=== PATIENT | female | born 1965 | race Two or more races ===

== ENCOUNTER 2016-02-29 14:58 | Emergency (ER) | payer OTHER ==
[~2016-02-29] VITALS: Ht 152.4 cm; Wt 58.7 kg
[~2016-02-29 14:58] MED LIST: ACET325T16 PO; DULO60CA44 PO; FERROUS GLUCON325 M1 PO; PROM25TA10 PO; RANI150T2 PO; ZOLP10TA4 PO
[2016-02-29 15:02] VITALS: BP 120/75
--- NOTE | 2016-02-29 15:37 | PHYS DOC ---
Past Medical History Past Medical History: GERD, Migraines Past Surgical History: No Surgical History Alcohol Use: None Drug Use: None Adult General Chief Complaint Chief Complaint: LOWER EXT PAIN [facility] HPI Patient is a 51 year old female presents the emergency Department today with complaint of atraumatic bilateral lower extremity pain is been ongoing for "several months". Patient describes pain is somewhat in a stocking-like distribution. She denies anything palliative or provocative about the pain. Patient states that she does not take any medications other than "headache medication" as prescribed by Dr. Wilkinson'shweta come her primary care doctor. She absolutely denies taking any statin agents. She denies any history of neuromuscular disease or previous fractures to either of her lower extremities. She denies any history of bone forming disorders. Patient states that she is primarily been staying in bed secondary to her ongoing headache and bilateral lower extremity pain. Patient states that she did see Dr. Cook about her bilateral lower extremity pain. She was prescribed "some medication" to help the pain but was not able to have it filled due to insurance problems. Review of Systems Review of Systems Constitutional: Denies fever or chills [] Eyes: Denies change in visual acuity, redness, or eye pain [] HENT: Denies nasal congestion or sore throat [] Respiratory: Denies cough or shortness of breath [] Cardiovascular: No additional information not addressed in HPI [] GI: Denies abdominal pain, nausea, vomiting, bloody stools or diarrhea [] : Denies dysuria or hematuria [] Musculoskeletal: Bilateral thigh pain that radiates down to her lower legs. Integument: Denies rash or skin lesions [] Neurologic: Denies headache, focal weakness or sensory changes. Endocrine: Denies polyuria or polydipsia [] Current Medications Current Medications Current Medications Medications (Trade) Dose Ordered Sig/Caroline Start Time Stop Time Status Last Admin Dose Admin Ketorolac Tromethamine (Toradol Im) 60 mg 1X ONCE 02/29/16 15:45 02/29/16 15:46 DC 02/29/16 15:51 60 MG Allergies Allergies Allergies Coded Allergies Type Severity Reaction Last Updated Verified No Known Drug Allergies 03/04/13 No Physical Exam Physical Exam Constitutional: Well developed, well nourished, mild distress, non-toxic appearance. HENT: Normocephalic, atraumatic, bilateral external ears normal, oropharynx moist, no oral exudates, nose normal. [] Eyes: PERRLA, EOMI, conjunctiva normal, no discharge. [] Neck: Normal range of motion, no tenderness, supple, no stridor. [] Cardiovascular:Heart rate regular rhythm, no murmur [] Lungs & Thorax: Bilateral breath sounds clear to auscultation [] Abdomen: Bowel sounds normal, soft, no tenderness, no masses, no pulsatile masses. [] Skin: Warm, dry, no erythema, no rash. [] Back: No tenderness, no CVA tenderness. [] Extremities: Lateral lower extremities are normal in appearance without any discoloration to her skin. There is no evidence of dystrophic changes to her skin. There does not appear to be any muscle atrophy. There is pant tenderness to palpation to bilateral thighs and to some degree into her lower legs. There is no focal area of pain. Patient is able to flex and extend at both knees. Patient does have strong posterior tibialis and dorsalis pedis pulses with warm feeding capillary refill less than 2 seconds in her toes. Neurologic: Alert and oriented X 3, normal motor function, normal sensory function, no focal deficits noted. [] Psychologic: Affect normal, judgement normal, mood normal. [] Current Patient Data Vital Signs Vital Signs Date Time Temp Pulse Resp B/P Pulse Ox O2 Delivery O2 Flow Rate FiO2 02/29/16 15:02 97.6 103 16 97 Room Air 97.6 EKG EKG [] Radiology/Procedures Radiology/Procedures Bilateral femur films were performed with adequate technique. There is no evidence of any bony lesions suggestive of osteoblastic or osteoclastic activity. Course & Med Decision Making Course & Med Decision Making During her stay here in the emergency department, patient also complained about bilateral upper extremity pain at this atraumatic as well. This came after her initial contact and evaluation was performed. Patient essentially complains that all of her extremities hurt. There is no evidence of any type of musculoskeletal or neuromuscular deficit. I will prescribe the patient baclofen to help with her musculoskeletal pain and she will need to follow-up with her primary care doctor. Dragon Disclaimer Dragon Disclaimer This electronic medical record was generated, in whole or in part, using a voice recognition dictation system. Departure Departure Impression: Primary Impression: Musculoskeletal pain Disposition: HOME, SELF-CARE Condition: GOOD Referrals: SUSANNA WILKINSON MD (PCP) Patient Instructions: Musculoskeletal Pain Additional Instructions: 1. The x-rays of both 5 bones here today is normal. 2. Take the medication as prescribed. 3. Review the discharge instructions provided for home care as well as reasons to return the emergency department. 4. Call primary care doctor's office Tuesday to schedule follow-up appointment for reevaluation within 7-10 days. Scripts Baclofen 20 Mg Tablet1 Tab PO TID #30 TAB Ref 0 Prov:DONA DIAZ 02/29/16 DONA DIAZ Feb 29, 2016 15:37
[2016-02-29] MEDS ORDERED: KETOROLAC TROMETHAMINE 60 MG/2 ML SYRINGE. IM ONE (15:45)
[2016-02-29] MEDS ORDERED: BACL20TA PO (16:57)
--- NOTE | 2016-03-01 07:20 | RAD ---
Bilateral femurs, 4 views, 02/29/2016: History: Pain No fracture or destructive bony lesion is seen. The soft tissues are unremarkable. IMPRESSION: No significant abnormality is detected.
== END 2016-02-29 17:05 | disposition home or self-care (01) ==
LOC: ER 14:58
DX: M79.605 Pain in left leg (principal); M79.604 Pain in right leg
CPT/HCPCS: 96372; 99284; J1885

== ENCOUNTER 2017-01-03 02:16 | Emergency (ER) | payer OTHER ==
[~2017-01-03] VITALS: Ht 157.5 cm; Wt 58.5 kg
[~2017-01-03 02:16] MED LIST changes: +BACL20TA PO
[2017-01-03 02:33] VITALS: BP 118/87
[2017-01-03] MEDS ORDERED: KETOROLAC 30 MG/ML INJ. ONE (02:41)
[2017-01-03] MEDS ORDERED: KETOROLAC 60 MG/2 ML INJ. IM ONE ×2 (02:45→03:00)
[2017-01-03] MEDS ORDERED: traMADol 50 MG TABLET PO ONE (02:45)
[2017-01-03] MEDS ORDERED: IBUP-1007 PO (02:53)
[2017-01-03] MEDS ORDERED: TRAM-48 PO (02:53)
--- NOTE | 2017-01-03 02:53 | PHYS DOC ---
Past Medical History Past Medical History: GERD, Migraines Past Surgical History: No Surgical History Alcohol Use: None Drug Use: None Adult General Chief Complaint Chief Complaint: LOWER EXT PAIN HPI HPI Patient is a 51 year old female who presents here today complaining of bilateral lower leg pain times one year. Patient reports that she has not taken any medication for for over a year and has not seen her family doctor for it. Patient denies any trauma. Patient has any lower STEMI edema. Patient denies any fevers shakes chills nausea vomiting diarrhea chest pain shortness of breath cough cold or rhinorrhea. Patient has no known drug allergies. Review of systems: Constitutional: Denies fever or chills Eyes: Denies change in visual acuity, redness, or eye pain HENT: Denies nasal congestion or sore throat Respiratory: Denies cough or shortness of breath All other systems were reviewed and found to be within normal limits, except as documented in this note. Physical exam: Constitutional: Well developed, well nourished, no acute distress, non-toxic appearance. HENT: Normocephalic,bilateral external ears normal, oropharynx moist, no oral exudates, nose normal. Eyes: PERRLA, EOMI, conjunctiva normal, no discharge. Neck: Normal range of motion, no tenderness, supple, no stridor. Cardiovascular:Heart rate regular rhythm, no murmur Lungs & Thorax: Bilateral breath sounds clear to auscultation Abdomen: Bowel sounds normal, soft, no tenderness, no masses, no pulsatile masses. Skin: Warm, dry, no erythema, no rash. Back: No tenderness, no CVA tenderness. Extremities: No tenderness, no cyanosis, no clubbing, ROM intact, no edema. Neurologic: Alert and oriented X 3, normal motor function, normal sensory function, no focal deficits noted. Psychologic: Affect normal, judgement normal, mood normal. Excellent capillary refill. Equal pulses bilaterally. Warm to touch no calf tenderness no Homans sign Assessment and plan: Lower extremity pain chronic in nature no new symptoms. Patient be given a shot Toradol and Ultram here in the ED and will be sent home with a prescription for ibuprofen and Ultram to assist her with her pain. Patient was instructed to follow-up with her PCP for further reevaluation of her pain. This does not appear to be acute issue. Patient's sinus symptoms are not to assist with DVT PE cellulitis. Current Medications Current Medications Current Medications Medications (Trade) Dose Ordered Sig/Caroline Start Time Stop Time Status Last Admin Dose Admin Ketorolac Tromethamine (Toradol Im) 30 mg 1X ONCE 01/03/17 03:00 01/03/17 03:01 UNV Ketorolac Tromethamine (Toradol) 30 mg STK-MED ONCE 01/03/17 02:41 01/03/17 02:42 DC Tramadol HCl (Ultram) 50 mg 1X ONCE 01/03/17 02:45 01/03/17 02:46 UNV 01/03/17 02:45 50 MG Allergies Allergies Allergies Coded Allergies Type Severity Reaction Last Updated Verified No Known Drug Allergies 03/04/13 No Current Patient Data Vital Signs Vital Signs Date Time Temp Pulse Resp B/P (MAP) Pulse Ox O2 Delivery O2 Flow Rate FiO2 01/03/17 02:45 22 100 Room Air 01/03/17 02:23 97.8 100 97.8 EKG EKG [] Radiology/Procedures Radiology/Procedures [] Course & Med Decision Making Course & Med Decision Making Pertinent Labs and Imaging studies reviewed. (See chart for details) [] Dragon Disclaimer Dragon Disclaimer This electronic medical record was generated, in whole or in part, using a voice recognition dictation system. Departure Departure Impression: Primary Impression: Musculoskeletal pain Disposition: 01 HOME, SELF-CARE Condition: IMPROVED Referrals: SUSANNA WILKINSON MD (PCP) Patient Instructions: Musculoskeletal Pain Scripts Tramadol Hcl (ULTRAM) 50 Mg Tablet 1 TAB PO Q6HRS, #14 TAB Prov: REY STARKS MD 01/03/17 Ibuprofen (IBUPROFEN) 600 Mg Tablet 600 MG PO PRN Q6HRS Y for PAIN, #20 TAB Prov: REY STARKS MD 01/03/17 REY STARKS MD Jan 03, 2017 02:53
== END 2017-01-03 03:06 | disposition home or self-care (01) ==
LOC: ER 02:16
DX: M79.662 Pain in left lower leg (principal); M79.661 Pain in right lower leg; K21.9 Gastro-esophageal reflux disease without esophagitis; G43.909 Migraine, unspecified, not intractable, without status migrainosus
CPT/HCPCS: 96372; 99283; J1885

== ENCOUNTER 2017-02-24 20:44 | Emergency (ER) | payer OTHER ==
[2017-02-24 21:09] LABS: URINE HCG POC HCG NEGATIVE (Negative)
[2017-02-24] MEDS: IV NORMAL SALINE 1000ML BAG 1,000 ML IV (21:30)
[2017-02-24 21:32] LABS: ADD MAN DIFF? NO
[2017-02-24 21:34] LABS: BASO % 1 % (0-3); EOS # 0.1 x10^3/uL (0.0-0.7); EOS % 1 % (0-3); HEMATOCRIT 42.3 % (36.0-47.0); HEMOGLOBIN 13.8 g/dL (12.0-15.5); LYMPH # 2.6 x10^3/uL (1.0-4.8); LYMPH % 33 % (24-48); MEAN CORPUSCULAR HEMOGLOBIN 27 pg (25-35); MEAN CORPUSCULAR HGB CONC 33 g/dL (31-37); MEAN CORPUSCULAR VOLUME 82 fL (79-100); MONO # 0.7 x10^3/uL (0.0-1.1); MONO % 9 % (0-9); NEUT # 4.5 x10^3uL (1.8-7.7); NEUT % 57 % (31-73); PLATELET COUNT 300 x10^3/uL (140-400); RED BLOOD COUNT 5.16 x10^6/uL (3.50-5.40); RED CELL DISTRIBUTION WIDTH 14.7 % (11.5-14.5)
[2017-02-24 21:46] LABS: ANION GAP 13 (6-14); BLOOD UREA NITROGEN 16 mg/dL (7-20); BUN/CREATININE RATIO 15 (6-20); CALCIUM 9.2 mg/dL (8.5-10.1); CARBON DIOXIDE 21 mmol/L (21-32); CHLORIDE 106 mmol/L (98-107); CREATININE 1.1 mg/dL (0.6-1.0); GFR 52.6; GLUCOSE 96 mg/dL (70-99); POTASSIUM 3.6 mmol/L (3.5-5.1); SODIUM 140 mmol/L (136-145)
[2017-02-24 21:47] LABS: BILIRUBIN,URINE NEGATIVE (NEG); CLARITY,URINE CLEAR; COLOR,URINE YELLOW; GLUCOSE,URINE NEGATIVE (NEG); NITRITE,URINE NEGATIVE (NEG); PROTEIN,URINE NEGATIVE (NEG-TRACE); UROBILINOGEN,URINE 0.2 mg/dL (0.2 mg/dL)
[2017-02-24 21:53] LABS: ALBUMIN 3.7 g/dL (3.4-5.0); ALBUMIN/GLOBULIN RATIO 0.9 (1.0-1.7); ALK PHOS 91 U/L (46-116); ALT (SGPT) 35 U/L (14-59); AST (SGOT) 14 U/L (15-37); CREATINE KINASE 77 U/L (26-192); LIPASE 223 U/L (73-393); MAGNESIUM 2.3 mg/dL (1.8-2.4); TOTAL BILIRUBIN 0.4 mg/dL (0.2-1.0); TOTAL PROTEIN 7.9 g/dL (6.4-8.2)
[2017-02-24 21:54] LABS: TROPONINI < 0.017 ng/mL (0.000-0.055)
[2017-02-24 21:55] LABS: RBC,URINE 0 /HPF (0-2)
[2017-02-24 21:56] LABS: AMORPHOUS SEDIMENT,UR PRESENT /HPF; BACTERIA,URINE FEW /HPF (0-FEW); SQUAMOUS EPITHELIAL CELL,UR MOD /LPF
[2017-02-24 21:58] LABS: NT-PRO BNP 12 pg/mL (0-124)
[2017-02-24 21:59] LABS: THYROID STIM HORMONE (TSH) 2.052 uIU/mL (0.358-3.74)
[2017-02-24] MEDS ORDERED: CONTRAST GIVEN MC (22:15)
[2017-02-24] MEDS: IOHEXOL 300 MG/ML 100ML VIAL. IV (22:15)
[2017-02-24] MEDS: ONDANSETRON PF 4 MG/2 ML VIAL. IV (22:29)
[2017-02-25] MEDS: metroNIDAZOLE 500 MG TABLET PO (00:02)
== END 2017-02-25 00:15 | disposition home or self-care (01) ==
LOC: ER 02-25 00:15
DX: K52.9 Noninfective gastroenteritis and colitis, unspecified (principal); G43.909 Migraine, unspecified, not intractable, without status migrainosus; R53.1 Weakness
CPT/HCPCS: 36415; 74177; 80053; 81001; 81025; 82550; 83690; 83735; 83880; 84443; 84484; 85025; 87086; 93005; 96361; 96374; 99285-25; J2405; J7030; Q9967

== ENCOUNTER 2017-04-25 18:31 | Emergency (ER) | payer OTHER ==
[2017-04-25] MEDS: diazePAM 5 MG TABLET PO (20:06)
[2017-04-25] MEDS: MORPHINE SULFATE 10 MG/ML VIAL. IM (20:07)
== END 2017-04-25 21:14 | disposition home or self-care (01) ==
LOC: ER 18:31
DX: L60.0 Ingrowing nail (principal); G43.909 Migraine, unspecified, not intractable, without status migrainosus
CPT/HCPCS: 96372; 99283-25; J2270

== ENCOUNTER 2017-06-01 01:49 | Emergency (ER) | payer OTHER ==
[2017-06-01] MEDS: IV NORMAL SALINE 1000ML BAG 1,000 ML IV (02:32)
[2017-06-01] MEDS: METOCLOPRAMIDE HCL 10 MG/2 ML VIAL. IV (02:35)
[2017-06-01] MEDS: DEXAMETHASONE SOD PHOS 20 MG/5 ML VIAL. IV (02:35)
[2017-06-01] MEDS: KETOROLAC 30 MG/ML INJ. IV (02:36)
[2017-06-01] MEDS: diphenhydrAMINE 50 MG/ML VIAL IVP (02:36)
== END 2017-06-01 03:32 | disposition home or self-care (01) ==
LOC: ER 01:49
DX: G43.909 Migraine, unspecified, not intractable, without status migrainosus (principal)
CPT/HCPCS: 96361; 96374; 96375; 99284-25; J1100; J1200; J1885; J2765; J7030

== ENCOUNTER 2017-06-21 22:49 | Emergency (ER) | payer OTHER ==
[2017-06-22] MEDS: KETOROLAC 60 MG/2 ML INJ. IM (00:15)
== END 2017-06-22 00:24 | disposition home or self-care (01) ==
LOC: ER 06-22 00:24
DX: G89.29 Other chronic pain (principal); M79.605 Pain in left leg; M79.604 Pain in right leg; M79.602 Pain in left arm; M79.601 Pain in right arm; G43.909 Migraine, unspecified, not intractable, without status migrainosus
CPT/HCPCS: 96372; 99283-25; J1885

== ENCOUNTER 2017-09-16 00:16 | Emergency (ER) | payer OTHER ==
[2017-09-16 01:00] LABS: ADD MAN DIFF? NO
[2017-09-16 01:04] LABS: BASO % 1 % (0-3); EOS # 0.1 x10^3/uL (0.0-0.7); EOS % 2 % (0-3); HEMATOCRIT 36.4 % (36.0-47.0); HEMOGLOBIN 11.9 g/dL (12.0-15.5); LYMPH # 2.1 x10^3/uL (1.0-4.8); LYMPH % 45 % (24-48); MEAN CORPUSCULAR HEMOGLOBIN 27 pg (25-35); MEAN CORPUSCULAR HGB CONC 33 g/dL (31-37); MEAN CORPUSCULAR VOLUME 83 fL (79-100); MONO # 0.5 x10^3/uL (0.0-1.1); MONO % 10 % (0-9); NEUT % 42 % (31-73); PLATELET COUNT 211 x10^3/uL (140-400); RED BLOOD COUNT 4.41 x10^6/uL (3.50-5.40); RED CELL DISTRIBUTION WIDTH 14.6 % (11.5-14.5); WHITE BLOOD COUNT 4.8 x10^3/uL (4.0-11.0)
[2017-09-16 01:11] LABS: ANION GAP 6 (6-14); BLOOD UREA NITROGEN 9 mg/dL (7-20); BUN/CREATININE RATIO 8 (6-20); CALCIUM 8.8 mg/dL (8.5-10.1); CARBON DIOXIDE 23 mmol/L (21-32); CHLORIDE 109 mmol/L (98-107); CREATININE 1.2 mg/dL (0.6-1.0); GFR 47.6; GLUCOSE 109 mg/dL (70-99); POTASSIUM 4.1 mmol/L (3.5-5.1); SODIUM 138 mmol/L (136-145)
[2017-09-16] MEDS: diphenhydrAMINE 50 MG/ML VIAL IVP (01:11)
[2017-09-16] MEDS: KETOROLAC 30 MG/ML INJ. IV (01:12)
[2017-09-16] MEDS: DEXAMETHASONE SOD PHOS 20 MG/5 ML VIAL. IV (01:13)
[2017-09-16] MEDS: METOCLOPRAMIDE HCL 10 MG/2 ML VIAL. IV (01:13)
[2017-09-16 01:17] LABS: ALBUMIN 3.2 g/dL (3.4-5.0); ALBUMIN/GLOBULIN RATIO 0.9 (1.0-1.7); ALK PHOS 76 U/L (46-116); ALT (SGPT) 27 U/L (14-59); AST (SGOT) 11 U/L (15-37); TOTAL BILIRUBIN 0.1 mg/dL (0.2-1.0); TOTAL PROTEIN 6.7 g/dL (6.4-8.2)
== END 2017-09-16 01:40 | disposition home or self-care (01) ==
LOC: ER 00:16
DX: R51 Headache (principal); M79.604 Pain in right leg; M79.605 Pain in left leg; G43.909 Migraine, unspecified, not intractable, without status migrainosus
CPT/HCPCS: 36415; 80053; 83735; 85025; 96374; 96375; 99284-25; J1100; J1200; J1885; J2765

== ENCOUNTER 2019-04-13 20:07 | Emergency (ER) | payer OTHER ==
[~2019-04-13] VITALS: Ht 152.4 cm; Wt 73.1 kg
[~2019-04-13 20:07] MED LIST changes: +BUTA1TAB23 PO; +CLIN300C8 PO; -DULO60CA44 PO; +DULO60CA45 PO; +IBUP-1007 PO; +LEVO500T59 PO; +METR500T PO; +ONDA4TAB10 PO; +OXYC1TAB15 PO; +PRED20TA PO; +TRAM-48 PO
[2019-04-13 20:37] VITALS: BP 137/97
--- NOTE | 2019-04-13 21:29 | PHYS DOC ---
Past Medical History Past Medical History: No Pertinent History Past Surgical History: No Surgical History Smoking Status: Never Smoker Alcohol Use: None Adult General Chief Complaint Chief Complaint: UPPER EXTREMITY PAIN [facility] Patient is a 54 year old female who presents with left upper arm pain has been ongoing for 10 days. The patient states she fell 10 days ago. Patient has full range of motion in the arm. But states that the left upper arm is continued to hurt. She rates her pain as 5 out of 10 in severity and sharp. She denies any other symptoms. Complete ROS were reviewed and found to be within normal limits, except as documented in the HPI Allergies Allergies Allergies Coded Allergies Type Severity Reaction Last Updated Verified No Known Drug Allergies 04/13/19 No Physical Exam Physical Exam Constitutional: Well developed, well nourished, no acute distress, non-toxic appearance. [] HENT: Normocephalic, atraumatic, bilateral external ears normal, oropharynx moist, no oral exudates, nose normal. [] Extremities: mild tenderness to L upper arm, no cyanosis, no clubbing, ROM intact, no edema. [] Neurologic: Alert and oriented X 3, normal motor function, normal sensory function, no focal deficits noted. [] Psychologic: Affect normal, judgement normal, mood normal. [] Current Patient Data Vital Signs Vital Signs Date Time Temp Pulse Resp B/P (MAP) Pulse Ox O2 Delivery O2 Flow Rate FiO2 04/13/19 20:37 98.1 101 20 137/97 (110) 96 Room Air 98.1 EKG EKG [] Radiology/Procedures Radiology/Procedures [][facility] [address] [place] [address] IMAGING REPORT Signed PATIENT: BILLIE CASTANEDA ACCOUNT: [id number] : 1965 LOCATION: ER AGE: 54 SEX: F EXAM STATUS: REG ER ORD. PHYSICIAN: NAGA SERRANO APRN REASON: fall PROCEDURE: HUMERUS LEFT Left humerus 2 views. HISTORY: Fall 2 views were taken of the left humerus. There is no fracture or osseous abnormality. IMPRESSION: 1. No fracture noted in the left humerus. Electronically signed by: Fransisco Fenton MD (04/13/2019 9:32 PM) [id number] DICTATED and SIGNED BY: FRANSISCO FENTON MD DATE: 04/13/192131 Course & Med Decision Making Course & Med Decision Making Pertinent Labs and Imaging studies reviewed. (See chart for details) Will get imaging. Imaging is unremarkable. Will d/c home. Dragon Disclaimer Dragon Disclaimer This electronic medical record was generated, in whole or in part, using a voice recognition dictation system. Departure Departure Impression: Primary Impression: Left upper arm pain Disposition: HOME, SELF-CARE Condition: STABLE Referrals: NO PCP (PCP) Additional Instructions: Thank you for visiting [facility]. We appreciate you trusting us with your care. If any additional problems come up don't hesitate to return to visit us. Please follow up with your primary care provider so they can plan additional care if needed and know about the problem that you had. If symptoms worsen come back to the Emergency Department. Any concerning symptoms that start such as chest pain, shortness of air, weakness or numbness on one side of the body, running high fevers or any other concerning symptoms return to the ER. NAGA SERRANO APRN Apr 13, 2019 21:29
--- NOTE | 2019-04-13 21:35 | RAD ---
Left humerus 2 views. HISTORY: Fall 2 views were taken of the left humerus. There is no fracture or osseous abnormality. IMPRESSION: 1. No fracture noted in the left humerus. Electronically signed by: Fransisco Joe MD (04/13/2019 9:32 PM) [id number]
== END 2019-04-13 21:47 | disposition home or self-care (01) ==
LOC: ER 20:07 → MERGE 20:07 → ER 21:47
DX: M79.622 Pain in left upper arm (principal); G89.11 Acute pain due to trauma; W18.39XA Other fall on same level, initial encounter; Y93.89 Activity, other specified; Y92.89 Other specified places as the place of occurrence of the external cause; Y99.8 Other external cause status
CPT/HCPCS: 73060; 99284

== ENCOUNTER 2019-07-18 15:30 | Emergency (ER) | payer OTHER ==
[~2019-07-18] VITALS: Ht 149.9 cm; Wt 68.1 kg
[~2019-07-18 15:30] MED LIST changes: +ACET-2061 PO; -ACET325T16 PO
[2019-07-18 15:45] VITALS: BP 149/95
[2019-07-18] MEDS ORDERED: METH4TAB2 PO (16:03)
[2019-07-18] MEDS ORDERED: GABA-585 PO (16:03)
[2019-07-18] MEDS ORDERED: DICL100G54 TP (16:03)
[2019-07-18] MEDS ORDERED: CYCL10TA2 PO (16:03)
--- NOTE | 2019-07-18 16:03 | PHYS DOC ---
Past Medical History Past Medical History: No Pertinent History Additional Past Medical Histor: lower extremity "pain and weakness"; uses a cane Past Surgical History: No Surgical History Smoking Status: Never Smoker Alcohol Use: None Drug Use: None General Adult EDM: Chief Complaint: UPPER EXTREMITY PAIN HPI: HPI: Patient is a 54 year old female who presents the ED today complaining of mild intermittent left upper extremity pain specifically left shoulder that began a month ago. Patient states he was evaluated in the ED a month ago after falling on her shoulder, she states she had a negative x-ray. She states she is continued to have the pain. She describes the pain as sharp and worse on range of motion. She states the pain is even worse when she tries to comb her hair. She states she would like to have an MRI of her shoulder/left upper extremity considering her x-ray a month ago was negative. 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 [] Musculoskeletal: Reports left upper extremity pain Integument: Denies rash. [] Neurologic: Denies headache, focal weakness or sensory changes. [] Psychiatric: Denies depression or anxiety. [] Heart Score: Risk Factors: Risk Factors: DM, Current or recent (<one month) smoker, HTN, HLP, family history of CAD, obesity. Risk Scores: Score 0 - 3: 2.5% MACE over next 6 weeks - Discharge Home Score 4 - 6: 20.3% MACE over next 6 weeks - Admit for Clinical Observation Score 7 - 10: 72.7% MACE over next 6 weeks - Early Invasive Strategies Allergies: Allergies: Allergies Coded Allergies Type Severity Reaction Last Updated Verified No Known Drug Allergies 03/04/13 No Physical Exam: PE: Constitutional: Well developed, well nourished, no acute distress, non-toxic appearance. [] Skin: Warm, dry, no erythema, no rash. [] Back: No tenderness, no CVA tenderness. [] Extremities: Left upper extremity with no obvious deformity, no tenderness on exam, full range of motion to the left upper extremity, pain elicited on e levation of the left upper extremity above the shoulder. Adequate radial, median, ulnar sensation to the left upper extremity. +2 left radial pulse. Cap refill less than 2 seconds. Neurologic: Alert and oriented X 3, normal motor function, normal sensory function, no focal deficits noted. [] Psychologic: Affect normal, judgement normal, mood normal. [] Current Patient Data: Vital Signs: Vital Signs Date Time Temp Pulse Resp B/P (MAP) Pulse Ox O2 Delivery O2 Flow Rate FiO2 07/18/19 15:45 98.2 92 20 149/95 (113) 96 Room Air 98.2 EKG: EKG: [] Radiology/Procedures: Radiology/Procedures: [] Course & Med Decision Making: Course & Med Decision Making Pertinent Labs and Imaging studies reviewed. (See chart for details) This is a 54-year-old female patient presenting to the ED today with left upper extremity pain specifically left shoulder that began a month ago. Patient fell a month ago was seen in the ED had negative x-rays, she is here requesting MRI of the left upper extremity. Informed patient she does not meet criteria for emergent MRI in the ED. Recommended following up with the PCP or orthopedic doctor. Provided a sling in the ED. Discharged with Voltaren cream, gabapentin, cyclobenzaprine. Provided Ortho for follow-up. Dragon Disclaimer: Dragon Disclaimer: This electronic medical record was generated, in whole or in part, using a voice recognition dictation system. Departure Departure Impression: Primary Impression: Left shoulder pain Qualified Codes: M25.512 - Pain in left shoulder Disposition: 01 HOME, SELF-CARE Condition: STABLE Referrals: NO PCP (PCP) HERNANDEZ MCGRAW II, MD follow up in 2 weeks Patient Instructions: Shoulder Pain, [id number] Additional Instructions: You were evaluated in the emergency room for left shoulder pain/upper extremity. Kindly contact your own primary care doctor and follow-up for outpatient MRI if needed or you can follow up with the provided orthopedic doctor. Use the prescribed medications as ordered. Scripts Cyclobenzaprine Hcl (CYCLOBENZAPRINE HCL) 10 Mg Tablet 1 TAB PO TID, #30 TAB Prov: MUTUNGA,OLGA FILE CLERK 20 Gabapentin (GABAPENTIN ) 100 Mg Capsule 100 MG PO TID for NEUROGENIC PAIN, #30 CAP Prov: MUTUNGA,OLGA FILE CLERK 20 Methylprednisolone (MEDROL) 4 Mg Tab.ds.pk 1 PKG PO UD, #1 PKG Prov: MUTUNGA,OLGA FILE CLERK 20 Diclofenac Sodium (VOLTAREN) 100 Gm Gel..gram. 1 GM TP QID for pain for 30 Days, #1 EACH 0 Refills apply to affected area(s) Prov: OLGA JESSICA APRN 07/18/19 OLGA JESSICA APRN Jul 18, 2019 16:03
== END 2019-07-18 16:05 | disposition home or self-care (01) ==
LOC: ER 15:30
DX: M25.512 Pain in left shoulder (principal)
CPT/HCPCS: 99283